=== PATIENT | female | born 1980 | race Caucasian/White ===

== ENCOUNTER 2017-08-30 05:37 | Day surgery (SDC) | payer OTHER ==
[~2017-08-30] VITALS: Ht 157.5 cm; Wt 113.6 kg
[~2017-08-30 05:37] MED LIST: ALLEGRA180 MG PO; FIORINAL 50-321 EACH PO; FLEXERIL10 MG PO; INDERAL40 MG PO; MOTRIN800 MG PO; PROMETHAZINE HC25 M1 PO; XANAX1 MG PO
[2017-08-30 06:36] VITALS: BP 120/72
[2017-08-30] MEDS ORDERED: IBUPROFEN800 MG PO (09:40)
[2017-08-30] MEDS ORDERED: ENDOCET 5-3251 EACH PO (09:40)
[2017-08-30 11:22] VITALS: BP 127/70
[2017-08-30 12:12] VITALS: BP 131/78
== END 2017-08-30 12:28 | disposition home or self-care (01) ==
LOC: SDC 05:37
DX: N84.0 Polyp of corpus uteri (principal); D25.1 Intramural leiomyoma of uterus; N73.6 Female pelvic peritoneal adhesions (postinfective); N92.0 Excessive and frequent menstruation with regular cycle; N70.11 Chronic salpingitis; J45.909 Unspecified asthma, uncomplicated; K21.9 Gastro-esophageal reflux disease without esophagitis; F17.210 Nicotine dependence, cigarettes, uncomplicated
CPT/HCPCS: 88302; 88305; J0330; J0690; J1100; J1170; J1885; J2060; J2250; J2405; J2710; J2765; J3010